=== PATIENT | female | born 1950 | race Caucasian/White ===

== ENCOUNTER → 2016-08-09 | Outpatient (CLI) | payer BC ==
[~2016-08-09] MED LIST: ASPIRIN 81MG TA81 MG PO; CALCIUM ACETAT667 MG PO; CENTRUM SILVER1 TAB PO; CO-Q10 300 MG-31 SGL PO; DOXYCYCLINE100 M1 PO; FISH OIL1000 MG PO; FLONASE 50 MCG16 GM; GARLIC500 MG PO; NATURE'S BLEND500 M5 PO; SIMVASTATIN20 MG PO; TESSALON PERLE100 MG PO; VITAMIN C500 M1 PO; ZANTAC 150150 MG PO; ZYRTEC 10MG TAB10 MG PO
--- NOTE | 2016-08-16 20:38 | RADIOLOGY REPORT PS360 ---
DIG MAMM-SCREEN [facility] W/CAD CAD Screening ORDERING PHYSICIAN : Delta Guerrero MD PATIENT AGE: 65 years GENDER: Female COMPARISON: Previous mammograms: May 2015 and January 2014 and & October 2012 INDICATION: Routine screening. 65-year-old no hormones no new complaints previous stereotactic biopsy right breast. Family history: paternal aunt with breast cancer age 57 TECHNIQUE: Standard CC and MLO images were obtained. R2 CAD reviewed. FINDINGS: Minimal fibroglandular elements bilaterally.. No significant change since RIGHT BREAST: Metallic clip marker from previous percutaneous biopsy deep axillary right breast again noted. No new findings. LEFT BREAST: No significant new findings. The minimal nodularity upper-outer quadrant left breast appears similar to previous studies dating back to at least 2012. No significant new findings. ------IMPRESSION: ------- Stable bilateral mammogram follow-up in one year recommended. BI-RADS CATEGORY: 2_Benign stable.. RECOMMENDED FOLLOWUP: 12M 12 MONTH FOLLOW-UP (A letter has been sent to the patient regarding results of the study.)
== END ==
LOC: RAD 08:25
DX: Z12.31 Encounter for screening mammogram for malignant neoplasm of breast (principal)
CPT/HCPCS: G0202

== ENCOUNTER → 2017-06-12 | Outpatient (CLI) | payer BC ==
--- NOTE | 2017-06-13 16:57 | RADIOLOGY REPORT PS360 ---
PROCEDURE: 2-D M-mode and color Doppler study INDICATIONS FOR THE TEST: Chest pain COPD Heart MurmurX Tobacco SmokingX Palpitations Fatigue Syncope Edema Hypertension Diabetes Mellitus Rheumatic Fever SOB JEAN Obesity HyperlipidemiaX Family History HDX Additional History BRADYCARDIA PATIENT INFORMATION HEIGHT: 64 WEIGHT:123 GENDER: Female B/P:161/86 2-D/M-MODE INTERPRETATION: 2-D MEASUREMENTS OBSERVED VALUES IN CMS Right Ventricular Dimension (RVDd) 2.2 Interventricular Septum (Thickness)(IVsd) 1.2 Left Ventricular Internal Dimensions(LVIDd) 4.3 Left Ventricular Posterior Wall (Thickness)(LVPWd) 1.0 Aortic Root 2.9 Aortic Cusp Separation 2.0 Left Atrial Dimensions (LAD) 3.3 2D 1. Left atrium is qualitatively mildly enlarged, left ventricle is normal size, left ventricle wall thickness is upper limit of the normal, there is preserved left ventricle systolic function, visually estimated ejection fraction of 55% with no obvious regional wall motion abnormality. 2. The right atrium is normal size, right ventricle is mildly enlarged with normal contractility. 3. The aortic valve is minimally thickened and fibrosed. 4. The mitral and tricuspid valve are structurally normal. 5. The pulmonic valve is poorly visualized. 6. No significant pericardial effusion noted. DOPPLER INTERROGATION: Doppler interrogation of the aortic, mitral and tricuspid valvular presence of mild mitral and tricuspid regurgitation, tricuspid regurgitant jet velocity insufficient for calculation of the right ventricular systolic pressure, grade 1 diastolic dysfunction seen without tissue Doppler evidence of raised left atrial pressure. CONCLUSION: 1. Mildly enlarged left atrium, normal left ventricular size, preserved left ventricular systolic function, visually estimated ejection fraction 55% with no obvious regional wall motion abnormality, grade 1 diastolic dysfunction seen without tissue Doppler evidence of raised left atrial pressure. 2. Mild mitral and tricuspid regurgitation. 3. No significant pericardial effusion noted.
== END ==
LOC: RT 14:19
DX: R00.1 Bradycardia, unspecified (principal)